=== PATIENT | male | born 1990 | race Caucasian/White ===

== ENCOUNTER 2017-07-08 19:44 | Emergency (ER) | payer MEDICARE ==
[~2017-07-08] VITALS: Ht 175.3 cm; Wt 65.9 kg
[2017-07-08] MEDS ORDERED: TACR1 PO (20:04)
[2017-07-08] MEDS ORDERED: PRED10 PO (20:04)
[2017-07-08] MEDS ORDERED: INSLAN SQ (20:04)
[2017-07-08 20:07] LABS: GLUCOSE,POINT OF CARE 415 MG/DL (70-110)
[2017-07-08] MEDS ORDERED: ONDANSETRON HCL 4 MG/2 ML VIAL IVP ONE (20:45)
[2017-07-08] MEDS ORDERED: MORPHINE SULFATE 4 MG/ML SYRINGE IVP ONE ×2 (20:45→22:15)
[2017-07-08] MEDS ORDERED: SODIUM CHLORIDE 0.9% 500 ML IV ONE (20:45)
[2017-07-08 20:52] LABS: APPEARANCE,URINE CLEAR (CLEAR); GLUCOSE, URINE (UA) 500 mg/dL (NEGATIVE); KETONES,URINE NEGATIVE (NEGATIVE); LEUKOCYTE ESTERASE ,URINE NEGATIVE (NEGATIVE); OCCULT BLOOD,URINE NEGATIVE (NEGATIVE); PH,URINE 5.5 (5.0-8.0); PROTEIN,URINE NEGATIVE (NEGATIVE)
[2017-07-08 20:54] LABS: RBC,URINE 0-2 /HPF (0-2); SQUAMOUS EPITHELIAL CELL,UR Rare /LPF (None Seen); WBC,URINE 0-2 /HPF (0-5)
[2017-07-08 21:12] LABS: HEMATOCRIT 23.7 % (41-53); HEMOGLOBIN 7.7 g/dL (13.5-17.5); MEAN CORPUSCULAR HEMOGLOBIN 30.8 pg (26.0-34.0); MEAN CORPUSCULAR HGB CONC 32.7 G/dL (31.0-37.0); MEAN CORPUSCULAR VOLUME 94 fL (80-100); PLATELET COUNT (AUTO) 183 K/uL (150-450); RED BLOOD CELL COUNT(AUTO) 2.52 MIL/uL (4.50-5.90); RED CELL DISTRIBUTION WIDTH 18.7 % (11.5-14.5); WHITE BLOOD COUNT (AUTO) 11.5 K/uL (4.5-11.0)
[2017-07-08 21:16] LABS: ALBUMIN 2.5 g/dL (3.4-5.0); BILIRUBIN,TOTAL 10.2 mg/dL (0.1-1.0); CALCIUM, TOTAL 8.8 mg/dL (8.8-10.5); CREATININE 2.84 mg/dL (0.60-1.30); POTASSIUM 4.4 mmol/L (3.5-5.1); TOTAL PROTEIN, SERUM 5.8 g/dL (6.4-8.2)
[2017-07-08 21:20] LABS: PROTHROMBIN TIME 10.6 SEC (9.4-11.6)
[2017-07-08 21:27] LABS: LYMPHOCYTES % (MANUAL) 6 % (22-44); TOTAL CELLS COUNTED 100
[2017-07-08 21:28] LABS: RBC MORPHOLOGY COMMENT ABNORMAL RBC MORPH
[2017-07-08] MEDS ORDERED: INSULIN REGULAR, HUMAN 100 UNITS/ML IVP ONE (21:30)
[2017-07-08] MEDS ORDERED: DiphenhydrAMINE HCL 50 MG/ML VIAL IVP ONE (21:45)
[2017-07-08] MEDS ORDERED: LACTULOSE 20 GM/30 ML SOLUTION UDCUP PO ONE (22:00)
[2017-07-08 23:06] LABS: GLUCOSE,POINT OF CARE 186 MG/DL (70-110)
[2017-07-09] MEDS ORDERED: HYDROmorphone 2 MG/ML SYRINGE IVP ONE (01:00)
[2017-07-09] MEDS ORDERED: DiphenhydrAMINE HCL 50 MG/ML VIAL IVP ONE (01:45)
[2017-07-09 03:36] LABS: GLUCOSE,POINT OF CARE 168 MG/DL (70-110)
[2017-07-09 07:22] LABS: GLUCOSE,POINT OF CARE 144 MG/DL (70-110)
[2017-07-09] MEDS ORDERED: DiphenhydrAMINE HCL 25 MG CAPSULE PO ONE (07:45)
[2017-07-09 08:00] VITALS: BP 123/77
== END 2017-07-09 08:38 | disposition short-term general hospital (02) ==
LOC: EMS 19:47
DX: K72.90 Hepatic failure, unspecified without coma (principal); N28.9 Disorder of kidney and ureter, unspecified; E11.65 Type 2 diabetes mellitus with hyperglycemia; M79.89 Other specified soft tissue disorders; Z87.442 Personal history of urinary calculi; Z88.8 Allergy status to other drugs, medicaments and biological substances; Z79.4 Long term (current) use of insulin
CPT/HCPCS: 36415; 71010; 76700; 80053; 80307; 81001; 82140; 82948; 82962; 83690; 85025; 85610; 96361; 96374; 96375; 96376; 99285; J1170; J1200 ×2; J1815; J2270; J2405; J7030